=== PATIENT | female | born 1960 ===

== ENCOUNTER 2025-09-17 07:15 | Inpatient (IN) | payer OTHER ==
[~2025-09-17] VITALS: Ht 152.4 cm; Wt 79.8 kg
[2025-09-17 09:56] LABS: URINE APPEARANCE Clear; URINE BILIRRUBIN Negative (NEGATIVE); URINE BLOOD Negative; URINE COLOR Dark Yellow; URINE GLUCOSE Negative (NEGATIVE); URINE KETONE Trace (NEGATIVE); URINE LEUKOCYTE Negative; URINE NITRATE Negative; URINE PROTEIN 30 (NEGATIVE); URINE UROBILINOGEN 0.2 E.U./dl
[2025-09-17 10:01] LABS: URINE BACTERIA 34.7 uL (0.0-1933); URINE EPITHELIAL CELLS 8.1 uL (0.0-38.8); URINE RBC 6.0 uL (0.0-20.8); URINE WBC 4.4 uL (0.0-23.2)
[2025-09-17 10:02] LABS: BASO % 0.2 % (0.1-1.2); EOS # 0.10 (0.04-0.54); EOS % 1.7 % (0.7-7.0); LYMPH # 1.72 (1.18-3.74); LYMPH % 29.1 % (19.3-53.1); MEAN PLATELET VOLUME 9.80 fl (9.4-12.4); MONO # 0.44 (0.24-0.82); MONO % 7.4 % (4.7-12.5); NEUT # 3.61 (1.56-6.13); NEUT % 61.1 % (34.0-71.1); RED CELL DISTRIBUTION WIDTH 19.9 % (11.6-14.4)
[2025-09-17] MEDS ORDERED: RAMIPRIL1.25 MG PO (10:02)
[2025-09-17] MEDS ORDERED: LYRICA300 MG PO (10:03)
[2025-09-17] MEDS ORDERED: TORSEMIDE10 MG PO (10:04)
[2025-09-17] MEDS ORDERED: DRIZALMA SPRINK60 MG PO (10:04)
[2025-09-17] MEDS ORDERED: LIPITOR40 MG PO (10:04)
[2025-09-17] MEDS ORDERED: DALIRESP250 MCG PO (10:05)
[2025-09-17] MEDS ORDERED: FLONASE16 GM (10:05)
[2025-09-17 10:06] VITALS: BP 107/70
[2025-09-17] MEDS ORDERED: PANTOPRAZOLE SO40 MG PO (10:06)
[2025-09-17 10:26] LABS: INR 0.99
[2025-09-17 10:27] LABS: URINE CAST 0.43 uL (0.0-1.40)
[2025-09-17 10:41] LABS: ALT/SGPT 45.0 U/L (12-78); AST/SGOT 24.0 U/L (15-37); BILIRUBIN TOTAL 0.6 mg/dL (0.3-1.2); BUN CREA RATIO 15.0 (7.0-25.0); CHOL HDL RATIO 2.3 (0-5.0); CREATININE SERUM 1.5 mg/dL (0.55-1.02); GFR 34.64; GLOBULINA 3.1 G/DL (2.4-3.5); GLUCOSE FASTING 93.0 mg/dL (65-100); HDL 97.0 mg/dl (40-60); LDL 95.0 mg/dl (0-130); OSMOLALITY SERUM 295.0 MOSM/KG (275-295); VLDL 26.0 (0-39)
[2025-09-17 11:11] LABS: COVID-19 AG NEGATIVE (NEGATIVE)
[2025-09-24] MEDS ORDERED: CEFAZOLIN SODIUM 1,000 MG VIAL ONE (09:04)
[2025-09-24] MEDS ORDERED: TRANEXAMIC ACID 100MG/1ML (1000MG) AMPUL ONE (09:04)
[2025-09-24] MEDS ORDERED: MORPHINE SULFATE 4 MG/ML CARTRIDGE IV ONE (10:45)
[2025-09-24] MEDS ORDERED: BUPIVACAINE HCL/MPF 0.5% 30ML VIAL ONE (12:35)
[2025-09-24] MEDS ORDERED: KETOROLAC TROMETHAMINE 60 MG VIAL IM ONE (12:35)
[2025-09-24] MEDS ORDERED: VANCOMYCIN HCL 1,000 MG VIAL ONE (12:36)
[2025-09-24] MEDS ORDERED: LIDOCAINE HCL 1%/EPINEPHRINE 20ML VIAL IJ ONE (12:36)
[2025-09-24] MEDS ORDERED: OxyCODONE HCL 5 MG TABLET (ROXICODONE) PO PRN (15:00)
[2025-09-24] MEDS ORDERED: SODIUM CHLORIDE 0.45 % 1,000 ML IV SCH (15:00)
[2025-09-24] MEDS ORDERED: MORPHINE SULFATE 4 MG/ML VIAL IV PRN (15:00)
[2025-09-24] MEDS ORDERED: ONDANSETRON HCL 2 MG/ML VIAL IV PRN (15:00)
[2025-09-24] MEDS ORDERED: GABAPENTIN 300 MG CAPSULE PO SCH (17:00)
[2025-09-24] MEDS ORDERED: CEFAZOLIN SODIUM 1,000 MG VIAL IV SCH (17:00)
[2025-09-24] MEDS ORDERED: ACETAMINOPHEN 500 MG GEL..CAP PO SCH (18:00)
[2025-09-24 18:45] VITALS: BP 107/69
[2025-09-25 00:59] VITALS: BP 115/71
[2025-09-25 07:27] LABS: BASO % 0.2 % (0.1-1.2); EOS # 0.09 (0.04-0.54); EOS % 1.9 % (0.7-7.0); LYMPH # 0.99 (1.18-3.74); LYMPH % 21.2 % (19.3-53.1); MEAN PLATELET VOLUME 9.70 fl (9.4-12.4); MONO # 0.34 (0.24-0.82); MONO % 7.3 % (4.7-12.5); NEUT # 3.22 (1.56-6.13); NEUT % 69.0 % (34.0-71.1); RED CELL DISTRIBUTION WIDTH 19.7 % (11.6-14.4)
[2025-09-25 08:00] VITALS: BP 112/74
[2025-09-25] MEDS ORDERED: PERCOCET 5-3251 EACH PO (08:07)
[2025-09-25] MEDS ORDERED: DUI500 PO (08:07)
[2025-09-25] MEDS ORDERED: ELIQUIS2.5 MG PO (08:07)
[2025-09-25] MEDS ORDERED: APIXABAN 2.5 MG TABLET PO SCH (09:00)
[2025-09-25] MEDS ORDERED: SENNOSIDES 1 TAB TABLET PO SCH (09:00)
[2025-09-25 15:17] LABS: COVID-19 AG NEGATIVE (NEGATIVE)
[2025-09-25] MEDS ORDERED: Cyanocobalamin/Mecobalamin 1 TAB.SL SL SCH (17:00)
[2025-09-25] MEDS ORDERED: SOD FERRIC GLUC COMPLX/SUCROSE 62.5 MG/5 ML AMPUL IV SCH (17:00)
[2025-09-25 18:33] LABS: ALT/SGPT 23.0 U/L (12-78); AST/SGOT 32.0 U/L (15-37); BILIRUBIN TOTAL 0.49 mg/dL (0.3-1.2); BUN CREA RATIO 10.0 (7.0-25.0); CREATININE SERUM 1.13 mg/dL (0.55-1.02); GFR 48.03; GLOBULINA 2.8 G/DL (2.4-3.5); GLUCOSE FASTING 109.0 mg/dL (65-100); OSMOLALITY SERUM 292.0 MOSM/KG (275-295)
[2025-09-26] VITALS: BP 113/70
[2025-09-26 08:21] LABS: BASO % 0.3 % (0.1-1.2); EOS # 0.08 (0.04-0.54); EOS % 1.4 % (0.7-7.0); LYMPH # 1.52 (1.18-3.74); LYMPH % 25.7 % (19.3-53.1); MEAN PLATELET VOLUME 9.30 fl (9.4-12.4); MONO # 0.72 (0.24-0.82); NEUT # 3.52 (1.56-6.13); NEUT % 59.4 % (34.0-71.1); RED CELL DISTRIBUTION WIDTH 20.0 % (11.6-14.4)
[2025-09-26 08:23] LABS: MONO % 12.2 % (4.7-12.5)
[2025-09-26 09:00] VITALS: BP 143/83
[2025-09-26] MEDS ORDERED: IRON FUM,PS/FOLIC ACID/VITC/B3 1 CAP CAPSULE PO SCH (09:00)
[2025-09-26 16:11] VITALS: BP 111/72
[2025-09-27] VITALS: BP 103/70
[2025-09-27 08:00] VITALS: BP 96/65
== END 2025-09-27 11:13 | DRG 470 ==
LOC: SURH 09-24 07:15 → OB/GYN 09-24 08:00 → O/R 09-24 08:00 → SURH 09-24 12:30 → OB/GYN 09-24 17:02 → O/R 09-24 17:20 → OB/GYN 09-24 18:43
PROVIDERS: ADMIT Orthopaedic Surgery; ATTEND Orthopaedic Surgery
PROC: 0MNP0ZZ Release Left Knee Bursa and Ligament, Open Approach (ICD-10-PCS; 2025-09-24)
PROC: 0SUD07Z Supplement Left Knee Joint with Autologous Tissue Substitute, Open Approach (ICD-10-PCS; 2025-09-24)
PROC: 0SRD0J9 Replacement of Left Knee Joint with Synthetic Substitute, Cemented, Open Approach (ICD-10-PCS; principal; 2025-09-24 12:30)
DX: M17.12 Unilateral primary osteoarthritis, left knee (principal); D62 Acute posthemorrhagic anemia; M22.12 Recurrent subluxation of patella, left knee